=== PATIENT | male | born 1965 | race Caucasian/White ===

== ENCOUNTER 2020-07-21 12:20 | Emergency (ER) | payer SELFPAY ==
[~2020-07-21] VITALS: Ht 170.2 cm; Wt 87.1 kg
[2020-07-21 12:28] VITALS: BP 154/100; Ht 170.2 cm; Wt 87.1 kg
[2020-07-21] MEDS ORDERED: SIMETHICONE125 MG PO (13:17)
[2020-07-21] MEDS ORDERED: CIPRO250 MG PO (13:17)
[2020-07-21] MEDS ORDERED: FLAGYL500 MG PO (13:17)
== END 2020-07-21 13:42 | disposition home or self-care (01) ==
LOC: ED 12:20
DX: A08.8 Other specified intestinal infections (principal); I10 Essential (primary) hypertension; F41.9 Anxiety disorder, unspecified